=== PATIENT | female | born 1955 | race Caucasian/White ===

== ENCOUNTER 2018-01-18 10:03 | Emergency (ER) | payer OTHER ==
[~2018-01-18] VITALS: Ht 167.6 cm; Wt 73.8 kg
[~2018-01-18 10:03] MED LIST: DOXYCYCLINE HY100 MG PO; NORVASC10 MG PO; NORVASC2.5 MG PO; PROTONIX40 MG PO; RANITIDINE HCL300 MG PO; SIMVASTATIN40 MG PO
[2018-01-18 11:06] VITALS: BP 122/88
== END 2018-01-18 11:07 | disposition home or self-care (01) ==
LOC: EME 10:03
PROC: 0HCGXZZ Extirpation of Matter from Left Hand Skin, External Approach (ICD-10-PCS; principal; 2018-01-18)
DX: S60.352A Superficial foreign body of left thumb, initial encounter (principal); W45.8XXA Other foreign body or object entering through skin, initial encounter; E78.5 Hyperlipidemia, unspecified; I10 Essential (primary) hypertension; Z88.0 Allergy status to penicillin
CPT/HCPCS: 99281; 99283